=== PATIENT | female | born 1990 | race Caucasian/White ===

== ENCOUNTER 2021-02-22 18:48 | Emergency (ER) | payer MEDICAID ==
[~2021-02-22] VITALS: Ht 165.1 cm; Wt 50.0 kg
--- NOTE | 2021-02-22 23:13 | NUR ---
ULTRASOUND PAGED 23:10
--- NOTE | 2021-02-23 01:45 | NUR ---
PATIENT EVALUATED BY ER MD AND TREATED TOO. NO RN INTERVENTION.
[2021-02-23 01:50] VITALS: BP 113/75
== END 2021-02-23 01:54 | disposition home or self-care (01) ==
LOC: ER 18:48
DX: O46.8X1 Other antepartum hemorrhage, first trimester (principal); N93.8 Other specified abnormal uterine and vaginal bleeding; R10.32 Left lower quadrant pain; Z3A.10 10 weeks gestation of pregnancy
CPT/HCPCS: 36415; 76801; 84702; 86900; 86901; 99284